=== PATIENT | male | born 2005 | race Caucasian/White ===

== ENCOUNTER 2024-04-26 22:01 | Emergency (ER) | payer BC, SELFPAY ==
[2024-04-26 22:03] VITALS: BP 141/85; PULSE 92; RESP 16; TEMP 36.4; O2SAT 97; BMI 24.4
--- NOTE | 2024-04-26 22:40 | ED_ITS ---
HPI - Wound/Laceration General Chief Complaint: Wound/Laceration Stated Complaint: Wrist lac Time Seen by Provider: 04/26/24 22:31 Source: patient Mode of arrival: ambulatory Limitations: no limitations History of Present Illness ED Provider: Dr. Blossom Carlson HPI narrative: patient comes to the emergency room complaining of a laceration in the wrist on the dorsum. 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 Patient denies any other injuries. Patient states that he believes that he is up-to-date with his Tdap shots. States that for his previous job will attempt years ago he needed to be up-to-date with all of his immunizations and believes he got his Tdap then. Related Data Allergies Allergy/AdvReac Type Severity Reaction Status Date / Time No Known Allergies Allergy Verified 04/26/24 22:06 Review of Systems Review of Systems: Constitutional : No Weight loss, No Fever, No Chills, No Night Sweats, No Fatigue, No Malaise ENT/Mouth : No Hearing loss, No Ear Pain, No Nasal Congestion, No Sinus Pain, No Hoarseness, No sore throat, No Rhinorrhea, No Swallowing Difficulty Eyes: No Eye Pain, No Swelling, No Redness, No Foreign Body, No Discharge, No Vision Changes Cardiovascular : No Chest Pain, No SOB, No Dyspnea on Exertion, No Orthopnea, No Edema, No Palpitations Respiratory : No Cough, No Sputum, No Wheezing, No Smoke Exposure, No Dyspnea Gastrointestinal : No Nausea, No Vomiting, No Diarrhea, No Constipation, No abdominal Pain, No Hematochezia, No Melena Genitourinary : no irregular bleeding, No Dysuria, No Urinary Frequency, No Hematuria, No Urinary Incontinence, No Urgency, No Flank Pain, No Urinary Flow Changes, No Hesitancy Musculoskeletal : No joint pain, No Myalgias, No Joint Swelling Skin : Complaining of laceration in the wrist Neuro : No Weakness, No Numbness, No Paresthesias, No Loss of Consciousness, No Dizziness, No Headache Psych : No Anxiety/Panic, No Depression, No SI/HI/AH/VH, No Social Issues, Heme/Lymph: No Bruising, No Bleeding,No Lymphadenopathy Endocrine : No Polyuria, No Polydipsia, No Temperature Intolerance [facility] Social History Social History Do you have a plan to hurt others: No Plan Physical Exam Vital Signs: Vital Signs: Last Vital Signs Temp 97.6 F 04/26/24 22:03 Pulse 92 04/26/24 22:03 Resp 16 04/26/24 22:03 BP 141/85 H 04/26/24 22:03 Pulse Ox 97 04/26/24 22:03 O2 Del Method Room Air 04/26/24 22:03 BMI result Body Mass Index 24.4 Const: Other: Appearance: Alert. Oriented X3. No acute distress. Eyes: Pupils equal, round and reactive to light. ENT: Pharynx normal. Neck: Normal inspection. Neck supple. No lymph nodes noted. No crepitus CVS: Normal heart rate and rhythm. Pulses normal. Normal S1 and S2 Respiratory: No respiratory distress. Breath sounds normal. No Wheezing. No rales Abdomen: Soft and nontender. No rigidity. No distention. Skin: Skin warm and dry. Normal skin color. Normal skin turgor. Extremities: No lower extremity edema. No Lacerations. No Rash. On the right wrist, there is a ragged laceration, consistent with getting injured by a fence Neuro: Oriented X 3. No motor deficit. No sensory deficit. Moving all extremities. No slurred speech. CN 2 through 12 grossly intact Psych: calm, cooperative, normal affect Course Course Course Narrative: I discussed the physical exam with the patient, patient will need stitches and possibly debridement. - Patient's injuries consistent with laceration with a fence rather than a suicide attempt. laceration due to SI is not suspected Medications Administered Discontinued Medications Generic Name Dose Route Start Last Admin Trade Name Chandrika PRN Reason Stop Dose Admin Lidocaine HCl 15 ml 04/26/24 22:34 04/26/24 23:15 Lidocaine Hcl 1 % 20 Ml Vial INFILTRATI 04/26/24 22:35 15 ml ONCE ONE Administration Medical Decision Making Medical Decision Making MDM Narrative: - patient's wound was injected with 1% lidocaine, needed 13 stitches. Patient able to flex and extend all fingers flex and extend the wrist without difficulty. - The laceration was examined under a bloodless field, no tendon lacerations appreciated - patient states that he believes that he is up-to-date with his Tdap injection, at this time, patient states that he will check his records at home and if he needs it, he will follow-up with his PCP Procedures Laceration Laceration 1: Site: upper extremity Side (If applicable): right Size (cm): 9 Description: linear, flap and irregular Depth: simple, single layer Local Anesthetic: lidocaine 1% Amount of anesthesia used (mL): 14 Pre-repair: wound explored and irrigated extensively Skin layer closed with: nylon Size (cm): 4-0 Number of sutures: 13 Technique: simple, interrupted Discharge Plan Discharge Clinical Impression: Laceration Patient Disposition: Home, Self-Care Instructions: Care For Your Stitches (ED), Laceration (ED) Additional Instructions: Please follow-up with your primary care physician tomorrow. If you have any worsening or new symptoms, please return to the emergency room or call 911
[2024-04-26] MEDS: Lidocaine HCl 1 % 20 ML VIAL 15 ML INFILTRATI (23:15)
[2024-04-26 23:31] VITALS: BP 109/63; PULSE 72; RESP 14; TEMP 36.7; O2SAT 99
[2024-04-26] MEDS: Ibuprofen 600 MG TABLET PO (23:42)
[2024-04-26 23:45] VITALS: BP 109/63; PULSE 72; RESP 14; TEMP 36.7; O2SAT 99
== END 2024-04-26 23:46 | disposition home or self-care (01) ==
LOC: HO.ED 23:37
PROVIDERS: Emergency Provider Emergency Medicine; PCP Family Medicine
DX: S61.511A Laceration without foreign body of right wrist, initial encounter (principal); M25.531 Pain in right wrist; W26.9XXA Contact with unspecified sharp object(s), initial encounter; Y93.9 Activity, unspecified; Y92.9 Unspecified place or not applicable; Y99.0 Civilian activity done for income or pay
CPT/HCPCS: 12034; 99283; 99284

== ENCOUNTER 2024-06-26 15:56 | Day surgery (SDC) | payer BC, SELFPAY ==
[2024-06-26] VITALS (8 sets, daily range): BP systolic 108–151; BP diastolic 55–100; PULSE 69–100; RESP 14–20; TEMP 36.6–37.3; O2SAT 96–100; BMI 24.4
--- NOTE | ~2024-06-26 | XR_ITS ---
EXAMINATION: XR KNEE, RIGHT CLINICAL INFORMATION: Pain. Injury. Open wound on the anterior right knee. COMPARISON: None available. TECHNIQUE: Four views of the right knee. FINDINGS: Question soft tissue swelling of the anterior lower thigh cephalad to the patella. No fracture or joint effusion identified. Alignment is anatomic. Joint spaces appear maintained. XR/XR knee RT 3V IMPRESSION: Findings as above. Electronically signed by: Justino Whittington MD 06/26/2024 05:29 PM EDT
--- NOTE | 2024-06-26 16:15 | ED_ITS ---
HPI - General Adult General Chief complaint: Wound/Laceration Stated complaint: leg lac Time Seen by Provider: 06/26/24 16:14 Source: patient Mode of arrival: ambulatory Limitations: no limitations History of Present Illness ED Provider: Kayce Tovar PA-C HPI narrative: Patient is a 19 year old assigned male at with no reported medical history presenting to the emergency department today with a right knee laceration. Patient states that he was running from a loose dog when he attempted to jump over a metal fence and cut open his right knee. Patient denies any dizziness, lightheadedness, abdominal pain, nausea, vomiting, fever, chills, blurry vision, double vision, loss of vision, chest pain, difficulty breathing, shortness of breath, back pain, night sweats, pain with urination, increased urinary frequency, increased urinary urgency, blood in his urine or stool, syncope or a near syncopal episode, recent trauma or falls, bowel incontinence, bladder incontinence, or any other complaints at this time. Location: right and lower extremity Relieving factors: none Exacerbating factors: none Associated symptoms: denies other symptoms Treatments prior to arrival: none Related Data Allergies Allergy/AdvReac Type Severity Reaction Status Date / Time No Known Allergies Allergy Verified 06/26/24 16:11 Review of Systems 2 Constitutional: Constitutional: Reports no additional constitutional complaints, Denies chills, Denies fever(s) and Denies night sweats Eyes: Eyes: Reports no additional eye complaints, Denies blurry vision, Denies change in vision, Denies diplopia, Denies eye discharge, Denies loss of vision and Denies eye pain ENT: Denies dizziness Cardiovascular: Cardiovascular: Reports no additional cardiovascular complaints, Denies chest pain, Denies lightheadedness, Denies Loss of Consciousness and Denies dyspnea Respiratory: Respiratory: Reports no additional respiratory complaints and Denies dyspnea Gastrointestinal: Gastrointestinal: Reports no additional gastrointestinal complaints, Denies abdominal pain, Denies melena, Denies hematochezia, Denies change in bowel habits and Denies change in stool character Genitourinary: Genitourinary: Reports no additional male genitourinary complaints, Denies hematuria, Denies oliguria, Denies difficulty urinating, Denies dysuria, Denies urinary frequency, Denies urinary hesitancy, Denies urinary incontinence and Denies urinary urgency Musculoskeletal: Musculoskeletal: Reports no additional musculoskeletal complaints, Denies numbness and Denies tingling Comments: right knee laceration Neurologic: Denies dizziness, Denies loss of vision, Denies numbness and Denies tingling Psychiatric: Psychiatric: Reports no additional psychiatric complaints Endocrine: Endocrine: Reports no additional endocrine complaints Hematologic/Lymphatic: Hematologic/Lymphatic: Reports no additional hematologic/lymphatic complaints Allergic/Immunologic: Allergic/Immunologic: Reports no additional allergic/immunologic complaints [facility] Past Medical History Attestation statement: The following information was validated with the patient. Source: old records reviewed and nursing notes reviewed Social History Social History Advance Directives: No Advance Directives Information Provided: No Do you have a plan to hurt others: No Plan Physical Exam ED Vital Signs: Vital Signs - 24 hr 06/26/24 16:08 06/26/24 17:48 Temperature 98 F 99.2 F Pulse Rate 100 100 Respiratory Rate 19 20 Blood Pressure 148/100 H 151/72 H Pulse Oximetry 98 96 Oxygen Delivery Method Room Air BMI result Body Mass Index 24.4 Const General: cooperative, no acute distress, alert and awake Nutritional Appearance: well nourished Orientation/consciousness: patient oriented x3 Limitations: no limitations HENMT Head: Yes normal to inspection and Yes atraumatic Ears: hearing grossly normal bilaterally and external ears normal General nose exam: Normal external nose present, no nasal discharge noted and no epistaxis Face and sinus: Yes normal facial exam, No abrasion and No laceration Mouth: Normal oral and palatal mucosa present, no drooling and no muffled voice Eyes General: appearance normal, both eyes and all related structures Periorbital: periorbital findings normal Eyelids: Yes eyelids normal Conjunctivae: conjunctivae normal Pupils: Equal, round and reactive pupils present EOM: EOMs intact bilaterally Neck Neck: Yes normal visual inspection, Yes full ROM and Yes no lymphadenopathy Chest Chest palpation & inspection: normal inspection of the chest Resp Effort & Inspection: normal respiratory effort and able to speak in complete sentences GI Inspection: Yes normal to inspection Neuro General: patient oriented x3 and moves all extremities Cranial nerves: Yes Equal, round and reactive pupils present Cognition (Neuro): normal cognition Extrem Other: General: Yes full ROM and Yes capillary refill normal Psych Appearance: grossly normal Mental Status: mental status grossly normal Affect: normal affect Attitude: cooperative Thought process: Normal thought process present Thought content: Normal thought content present Insight: Good insight present (Psych) Medications Administered Discontinued Medications Generic Name Dose Route Start Last Admin Trade Name Chandrika PRN Reason Stop Dose Admin Ampicillin Sodium/Sulbactam 100 mls @ 200 mls/hr 06/26/24 16:34 06/26/24 17:21 Sodium 3 gm/ Sodium Chloride IV 06/26/24 17:03 Infused ONCE ONE Infusion Cefazolin Sodium/Dextrose 2 gm in 50 mls @ 100 mls/hr 06/26/24 17:04 06/26/24 18:11 Ancef IV 06/26/24 17:33 Infused PREOP ONE Infusion Medical Decision Making Medical Decision Making [facility] Narrative: Patient is a 19 year old assigned male at with no reported medical history presenting to the emergency department today with a right knee laceration. Patient's physical exam showed a deep right knee laceration directly over the joint with active bleeding. Patient's blood work was unremarkable. Patient's right knee x-ray showed soft tissue swelling of the anterior lower thigh. I spoke to the orthopedic provider [employer] operations who recommended the patient be given IV antibiotics and taken to the OR for a washout. I explained my physical exam findings as well as all test results to the patient. I answered all questions asked by the patient. Patient verbalized agreement and understanding with this treatment plan and transfer to the operating room for washout. Differential Diagnosis Differential Diagnoses: The differential diagnosis associated with the presentation includes Knee laceration Knee injury Admission/Observation Consideration of admission/observation: Escalation of care including admission/observation considered Patient sent to the operating room for wash out Consult Healthcare Provider Management of the patient was discussed with: Billing Analyst (spoke to the orthopedic team as noted in the MDM Rationale portion of this note) Lab Data [facility] Lab Attestation statement: I reviewed the patient's lab results. My interpretation of these results are in the MDM Rationale portion of this note. 06/26/24 16:24 06/26/24 16:24 Labs: Lab Results 06/26/24 Range/Units 16:24 WBC 12.8 H (4.8-10.8) X10*3/uL RBC 4.58 L (4.60-5.80) X10*6/uL Hgb 13.8 L (14.0-18.0) g/dl Hct 38.6 L (42.0-52.0) % MCV 84.3 (80.0-98.0) fL MCH 30.1 (27.0-33.0) pg MCHC 35.8 (31.0-36.0) g/dl RDW 12.4 (11.0-16.0) % Plt Count 330 (160-400) X10*3/uL MPV 9.6 (9.4-12.4) fL Immature Gran % (Auto) 0.2 (0.0-0.4) % Neut % (Auto) 74.9 H (45-73) % Lymph % (Auto) 16.7 L (20-40) % [place] % (Auto) 7.0 (2-11) % Eos % (Auto) 0.9 (0-4) % Baso % (Auto) 0.3 (0-2) % Lymph # (Auto) 2.1 (1.2-4.9) X10*3/uL [place] # (Auto) 0.9 (0.1-1.2) X10*3/uL Eos # (Auto) 0.1 (0.0-0.4) X10*3/uL Baso # (Auto) 0.0 (0.0-0.2) X10*3/uL Abs Immat Gran (auto) 0.03 (0.00-0.03) X10*3/uL Absolute Neuts (auto) 9.6 H (2.0-8.3) x10*3/uL Absolute Nucleated RBC 0.000 (0.0-0.012) X10*3/uL Nucleated RBC % (auto) 0.0 (0.0-0.2) /100WBC ESR 10 (0-15) MM/HR PT 11.8 (11.1-13.3) SEC INR 1.0 (0.9-1.1) APTT 32.8 (26.0-36.8) SEC Sodium 139 (135-145) mmol/L Potassium 3.9 (3.3-5.1) mmol/L Chloride 107 (96-108) mmol/L Carbon Dioxide 23 (22-29) mmol/L Anion Gap 13 (12-20) BUN 10 (9-16) mg/dL Creatinine 0.97 (0.5-1.4) mg/dL Estim Creat Clear Calc 124.3 Estimated GFR > 60 Random Glucose 125 H (60-115) mg/dL Calcium 9.7 (8.4-10.2) mg/dL Total Bilirubin 0.5 (0.0-1.0) mg/dL AST 21 (5-37) U/L ALT 16 (0-40) U/L Alkaline Phosphatase 82 (39-117) U/L C-Reactive Protein 0.31 (< or = 0.50) mg/dL Total Protein 8.1 H (6.5-8.0) g/dL Albumin 4.7 (3.5-5.0) g/dL Independent Interpretation I performed an independent interpretation of an: Plain X-Ray Interpretation: My interpretation is in agreement with the radiologist's impression of this imaging study. - EXAMINATION: XR KNEE, RIGHT CLINICAL INFORMATION: Pain. Injury. Open wound on the anterior right knee. COMPARISON: None available. TECHNIQUE: Four views of the right knee. FINDINGS: Question soft tissue swelling of the anterior lower thigh cephalad to the patella. No fracture or joint effusion identified. Alignment is anatomic. Joint spaces appear maintained. XR/XR knee RT 3V IMPRESSION: Findings as above. Electronically signed by: Justino Whittington MD 06/26/2024 05:29 PM EDT RP Dictated By: Justino Whittington Signed By: Electronically signed by Justino Whittington 06/26/24 1729 Radiology Impression Discussion of test interpretation with radiology: I have reviewed the radiologist's reading. Critical Care Time Critical Care Time Critical Care Time: Yes Total Critical Care Time: 38 Attestation: I spent 38 minutes of Critical Care Time with this patient. This does not include time spent on separately reported billable procedures. Discharge Plan Discharge Clinical Impression: Deep laceration of knee Patient Disposition: Still a Patient
[2024-06-26 16:28] LABS: MANUAL DIFF FLAG NO
[2024-06-26 16:29] LABS: Basophils Percent Auto 0.3 % (0-2); Eosinophils Absolute Auto 0.1 X10*3/uL (0.0-0.4); Eosinophils Percent Auto 0.9 % (0-4); Hematocrit 38.6 % (42.0-52.0); Hemoglobin 13.8 g/dl (14.0-18.0); Imm Gran Abs Auto 0.03 X10*3/uL (0.00-0.03); Imm Gran Pct Auto 0.2 % (0.0-0.4); Lymphocytes Absolute Auto 2.1 X10*3/uL (1.2-4.9); Lymphocytes Percent Auto 16.7 % (20-40); Mean Corpuscular HGB Conc 35.8 g/dl (31.0-36.0); Mean Corpuscular Hemoglobin 30.1 pg (27.0-33.0); Mean Corpuscular Volume 84.3 fL (80.0-98.0); Mean Platelet Volume 9.6 fL (9.4-12.4); Monocytes Absolute Auto 0.9 X10*3/uL (0.1-1.2); Neutrophils Absolute Auto 9.6 x10*3/uL (2.0-8.3); Neutrophils Percent Auto 74.9 % (45-73); Platelet Count 330 X10*3/uL (160-400); Red Blood Count 4.58 X10*6/uL (4.60-5.80); Red Cell Distribution Width 12.4 % (11.0-16.0); White Blood Count 12.8 X10*3/uL (4.8-10.8)
[2024-06-26 16:38] LABS: Prothrombin Time 11.8 SEC (11.1-13.3)
[2024-06-26 16:40] LABS: Partial Thromboplastin Time 32.8 SEC (26.0-36.8)
[2024-06-26] MEDS: Ampicillin Sodium/Sulbactam Na 3 GM in 0.9 % Sodium Chloride 100 ML IV (16:43)
[2024-06-26 16:51] LABS: Alanine Aminotransferase 16 U/L (0-40); Albumin Level 4.7 g/dL (3.5-5.0); Alkaline Phosphatase 82 U/L (39-117); Anion Gap 13 (12-20); Aspartate Amino Transferase 21 U/L (5-37); Bilirubin Total 0.5 mg/dL (0.0-1.0); Blood Urea Nitrogen 10 mg/dL (9-16); C Reactive Protein 0.31 mg/dL (< or = 0.50); Calcium 9.7 mg/dL (8.4-10.2); Carbon Dioxide 23 mmol/L (22-29); Chloride 107 mmol/L (96-108); Creatinine Clr Calc Pharmacy 124.3; Estimated Glomerular Filt Rate > 60; Glucose Random 125 mg/dL (60-115); Potassium 3.9 mmol/L (3.3-5.1); Sodium 139 mmol/L (135-145); Total Protein 8.1 g/dL (6.5-8.0)
--- NOTE | 2024-06-26 17:00 | P.HPOP_ITS ---
History of Present Illness History of Present Illness Date of Service: 06/26/24 Chief complaint: leg lac Narrative: Bala Mills is a 19 year old male who presented to the emergency department after jumping over a fence and sustaining a laceration to the right anterior knee. He was unable to stop the bleeding at home and realized that the laceration was quite deep. He has no significant past medical history. Review of Systems 2 Review of Systems: Yes all other systems are reviewed and are negative PMFSH Social History Social History Advance Directives: No Advance Directives Information Provided: No Do you have a plan to hurt others: No Plan Meds Allergies Allergy/AdvReac Type Severity Reaction Status Date / Time No Known Allergies Allergy Verified 06/26/24 16:11 Active Medications: Current Medications Ampicillin Sodium/Sulbactam (Sodium 3 gm/ Sodium Chloride) 100 mls @ 200 mls/hr IV ONCE ONE Stop: 06/26/24 17:03 Last Admin: 06/26/24 16:43 Dose: 200 mls/hr Physical Exam 2 Vital Signs: Vital Signs: Last Vital Signs Temp 98 F 06/26/24 16:08 Pulse 100 06/26/24 16:08 Resp 19 06/26/24 16:08 BP 148/100 H 06/26/24 16:08 Pulse Ox 98 06/26/24 16:08 BMI result Body Mass Index 24.4 Const: General: cooperative, healthy appearing and no acute distress Resp: Effort & Inspection: normal respiratory effort and able to speak in complete sentences Cardio: Rate: regular rate Peripheral pulses: Peripheral pulses 2+ throughout GI: Palpation (GI): Soft to palpation Skin: Lesions: no lesions Rashes: no rashes Extrem: Other: Right knee anterior laceration with continuous oozing. Able to slightly flex and extend the knee. NVI. Results Labs 06/26/24 16:24 06/26/24 16:24 Labs: Abnormal lab results 06/26/24 Range/Units 16:24 WBC 12.8 H (4.8-10.8) X10*3/uL RBC 4.58 L (4.60-5.80) X10*6/uL Hgb 13.8 L (14.0-18.0) g/dl Hct 38.6 L (42.0-52.0) % Neut % (Auto) 74.9 H (45-73) % Lymph % (Auto) 16.7 L (20-40) % Absolute Neuts (auto) 9.6 H (2.0-8.3) x10*3/uL Random Glucose 125 H (60-115) mg/dL Total Protein 8.1 H (6.5-8.0) g/dL H & H 06/26/24 Range/Units 16:24 Hgb 13.8 L (14.0-18.0) g/dl Hct 38.6 L (42.0-52.0) % Coagulation 06/26/24 Range/Units 16:24 INR 1.0 (0.9-1.1) All other labs normal. Assessment and Plan (1) Laceration of right knee: Status: Acute Mr. Mills is a 19-year-old male who presents to the emergency department after sustaining a deep laceration to the right anterior knee after jumping over a fence. I discussed the case with Dr. Mckeon and explained the extent of the injury to the patient and options available which include surgical intervention. I explained the procedure in detail along with the length of recovery and rehab course. I explained the risk, benefits and alternatives. Risk including, but not limited to infection, blood clots, bleeding, non union or malunion and nerve/tissue damage to surrounding areas. I answered all their questions and with their understanding they have consented to move forward with operative debridement, lavage and closure. The patient will remain NPO. Quality Stroke Does the patient have a stroke diagnosis?: No VTE Prior VTE?: No VTE Risk Level:: Medical - moderate - high VTE Device Contraindication: N/A - Device Ordered VTE Drug Contraindication: N/A - Med Ordered Procedures Date of Service Date of Service: 06/26/24
[2024-06-26 17:07] LABS: Erythrocyte Sedimentation Rate 10 MM/HR (0-15)
[2024-06-26] MEDS: ceFAZolin Sodium/Dextrose,Iso 2 GM/50 ML PIGGYBACK IV (17:21)
--- NOTE | 2024-06-26 18:43 | P.CONAN_ITS ---
HPI - Anesthesia Eval Consult details Narrative: Right knee laceration PMFSH Active Problems Active Problems: All Active Problems Deep laceration of knee (Acute) Laceration of right knee (Acute) Family History Family history of problems with anesthesia: No Surgical History History of Problems with Anesthesia: No Social History Social History Advance Directives: No Advance Directives Information Provided: No Do you have a plan to hurt others: No Plan Meds Allergies Allergy/AdvReac Type Severity Reaction Status Date / Time No Known Allergies Allergy Verified 06/26/24 16:11 Exam Height,Weight and Vital Signs: Height 5 ft 10 in Weight 77.111 kg Last Vital Signs Temp 99.2 F 06/26/24 17:48 Pulse 100 06/26/24 17:48 Resp 20 06/26/24 17:48 BP 151/72 H 06/26/24 17:48 Pulse Ox 96 06/26/24 17:48 O2 Del Method Room Air 06/26/24 17:48 Pertinent Lab Results Pertinent Lab Results: Laboratory Tests 06/26/24 16:24 WBC 12.8 H RBC 4.58 L Hgb 13.8 L Hct 38.6 L MCV 84.3 MCH 30.1 MCHC 35.8 RDW 12.4 Plt Count 330 MPV 9.6 Immature Gran % (Auto) 0.2 Neut % (Auto) 74.9 H Lymph % (Auto) 16.7 L [place] % (Auto) 7.0 Eos % (Auto) 0.9 Baso % (Auto) 0.3 Lymph # (Auto) 2.1 [place] # (Auto) 0.9 Eos # (Auto) 0.1 Baso # (Auto) 0.0 Abs Immat Gran (auto) 0.03 Absolute Neuts (auto) 9.6 H Absolute Nucleated RBC 0.000 Nucleated RBC % (auto) 0.0 ESR 10 PT 11.8 INR 1.0 APTT 32.8 Sodium 139 Potassium 3.9 Chloride 107 Carbon Dioxide 23 Anion Gap 13 BUN 10 Creatinine 0.97 Estim Creat Clear Calc 124.3 Estimated GFR > 60 Random Glucose 125 H Calcium 9.7 Total Bilirubin 0.5 AST 21 ALT 16 Alkaline Phosphatase 82 C-Reactive Protein 0.31 Total Protein 8.1 H Albumin 4.7 Airway Mallampati Class: I TM Dist: >3cm Neck ROM: Full Loose/Missing/Broken Teeth: No Heart: RRR Lungs: CTA Assessment and Plan Assessment Anesthesia Assessment: Anesthesia Plan Discussed, PAT Visit and Chart Reviewed Final Anesthetic Review Family History of Problems with Anesthesia: No History of Problems with Anesthesia: No NPO: Yes ASA Class: I and Emergency Final Preanesthetic Review: No Changes in Pt Med Stat, Meds/Allgs Chart Reviewed, Consent Obtained/Reviewed and Anes Risks/Benef Reviewed Patient Risk: Low Procedure Risk: Low Anesthetic Plan Anesthetic Plan: GA Disposition: Standard PACU
[2024-06-26] MEDS: cefTRIAXone sodium 1 GM in 0.9 % Sodium Chloride 50 ML IV (20:05)
[2024-06-26] MEDS: Acetaminophen 325 MG TABLET 975 MG PO (20:48)
--- NOTE | 2024-06-27 07:07 | P.BOP_ITS ---
Brief Operative Note Date of Service: 06/26/24 Pre-op diagnosis: Right leg deep laceration Post-op diagnosis: same Procedure: Right leg deep laceration washout and primary closure Implants: none Surgeon: Wilfrid Mckeon MD Anesthesia: GLMA Was an Lapeler used for this Procedure?: No Estimated blood loss (mL): 15 Pathology: none sent Condition: stable Disposition: PACU
--- NOTE | 2024-06-27 07:12 | W.PM.OPN ---
Operative Note Operative Note Date of Service: 06/26/24 Narrative: After the patient was identified as Bala Mills and his right leg was initialed by myself he was brought to the operating room where general anesthesia was induced by anesthesiologist in routine fashion. The patient had been given both Unasyn and Ancef preoperatively. The dressing was removed from the patient's right knee. Inspection of his right leg showed a curvilinear incision measuring approximately 10 cm long. Minimal active bleeding. His thigh and lower leg compartments were soft. No foreign bodies noted. The patient's right leg was prepped and draped in sterile fashion. The patient's laceration was then irrigated with 3 L of normal saline solution via pulse lavage. Palpation into the laceration showed no defects in the extensor mechanism. There was no necrotic tissue. The laceration was then closed with 0 Vicryl, 2-0 Vicryl and skin fortino. Dry sterile dressing was placed over the laceration. The patient was awoken and extubated in the operating room. He was transferred to the recovery room in stable condition.
== END 2024-06-26 21:11 | disposition home or self-care (01) ==
LOC: HO.ED 16:48 → HO.SSS 16:50
PROVIDERS: Physician Assistant Medical; Emergency Provider Emergency Medicine; PCP Family Medicine; Visit Provider Orthopaedic Surgery
PROC: (CPT 12034; principal; 2024-06-26 18:00)
DX: S81.011A Laceration without foreign body, right knee, initial encounter (principal); W26.8XXA Contact with other sharp object(s), not elsewhere classified, initial encounter; M79.661 Pain in right lower leg; Y93.02 Activity, running; Y92.9 Unspecified place or not applicable; Y99.9 Unspecified external cause status
CPT/HCPCS: 12034; 36415; 73562; 80053; 85025; 85610; 85652; 85730; 86140; 96365; 96367; 99283; 99284; 99285; J0295; J0690; J0696; J1100; J1885; J2250; J2405; J2704; J2795; J3010

== ENCOUNTER → 2024-06-26 16:49 | Outpatient (BNV) | payer BC, SELFPAY | PROVIDERS: Emergency Provider Emergency Medicine; PCP Family Medicine; Visit Provider Physician Assistant | DX: S81.011A Laceration without foreign body, right knee, initial encounter (principal) | CPT/HCPCS: 12004; 99222 ==

== ENCOUNTER 2024-07-02 08:58 | Outpatient (AMB) | payer BC, SELFPAY ==
--- NOTE | 2024-07-02 09:10 | MHC.OFFVIS ---
Intake Visit Reasons: PO-Right knee lac DOS 06/26/24 DR-Wound check Intake Note: Bala a 19 year old male who presents today for a post operative wound check s/p right leg deep laceration washout and primary closure on 06/26/24. He reports mild discomfort in his right knee. He denies any fevers or chills. Allergies No Known Allergies Allergy (Verified 07/02/24 09:13) Medication List - Last Reconciled 07/02/24 by Wilfrid Mckeon MD cephalexin 500 mg PO Q6H 7 days ibuprofen 600 mg PO Q6H PRN oxycodone 5 mg PO Q6H PRN 5 days Physical Exam Extrem Other: Right knee examination shows that the surgical incision is healing well, no erythema, minimal discomfort with range of motion, 5/5 strength with quadriceps testing Assessment & Plan Assessment & Plan (1) Laceration of right knee: Code(s): S81.011A - Laceration without foreign body, right knee, initial encounter Category: Medical Plan Mr. Mills is doing well after undergoing washout and closure of his right knee deep laceration on 06/26/2024. I will leave his fortino in for now. I will see him back next week for repeat wound check and staple removal. Will continue with activities as tolerated in the meantime. Feel free to call me at any time should questions regarding his orthopedic management arise. Coding Level of Care Code Global (14228) Diagnoses Laceration of right knee S81.011A
== END 2024-07-02 09:36 | disposition home or self-care (01) ==
PROVIDERS: PCP Family Medicine; Visit Provider Orthopaedic Surgery
DX: S81.011A Laceration without foreign body, right knee, initial encounter (principal)
CPT/HCPCS: 99024

== ENCOUNTER → 2024-07-02 08:58 | Outpatient (BNVA) | payer BC, SELFPAY | PROVIDERS: PCP Family Medicine; Visit Provider Orthopaedic Surgery ==

== ENCOUNTER 2024-07-11 07:50 | Outpatient (AMB) | payer BC, SELFPAY ==
--- NOTE | 2024-07-11 07:55 | A.OFFVIS_ITS ---
Intake Visit Reasons: PO- RT knee laceration, DOS 06/26/24 Intake Note: Bala is a 19 year old male who presents to the office today for a post op rt knee laceration. Pt states he is overall feeling well and states he is not using any pain medications. [place] removed in office. He denies any fevers or chills. He would like to return to full duty at work. Allergies No Known Allergies Allergy (Verified 07/11/24 07:55) Medication List - Last Reconciled 07/11/24 by Wilfrid Mckeon MD ibuprofen 600 mg PO Q6H PRN Physical Exam Extrem Other: Right knee examination shows full range of motion when compared to his left knee with minimal discomfort, the laceration is healing well, no erythema, no signs of infection Assessment & Plan Assessment & Plan (1) Laceration of right knee: Code(s): S81.011A - Laceration without foreign body, right knee, initial encounter Category: Medical Plan Mr. Mills continues to do well after undergoing washout and closure of his right knee laceration on 06/26/2024. His fortino were removed and Steri-Strips placed over his incision. He can gradually progress to activities as tolerated. I did clear him to return to full duty at work. Will follow up with me on an as- needed basis should any questions or concerns arise. Feel free to call me at any time should questions regarding his orthopedic management arise. Coding Level of Care Code Global (93392) Diagnoses Laceration of right knee S81.011A
== END 2024-07-11 08:08 | disposition home or self-care (01) ==
PROVIDERS: PCP Family Medicine; Visit Provider Orthopaedic Surgery
DX: S81.011A Laceration without foreign body, right knee, initial encounter (principal)
CPT/HCPCS: 99024

== ENCOUNTER → 2024-07-11 07:50 | Outpatient (BNVA) | payer BC, SELFPAY | PROVIDERS: PCP Family Medicine; Visit Provider Orthopaedic Surgery ==

== ENCOUNTER 2024-12-23 16:17 | Emergency (ER) | payer BC, SELFPAY ==
[2024-12-23 16:53] VITALS: BP 118/67; PULSE 89; RESP 16; TEMP 37.6; O2SAT 97; BMI 32.8
--- NOTE | 2024-12-23 16:58 | ED.GENADULT ---
HPI - General Adult General Chief complaint: Skin/Abscess/Foreign Body Stated complaint: ? pilonidal cyst Related Data Previous Rx's ?Medication ?Instructions ?Recorded ibuprofen 600 mg tablet 600 mg PO Q6H PRN pain #90 tabs 06/26/24 Allergies Allergy/AdvReac Type Severity Reaction Status Date / Time No Known Allergies Allergy Verified 12/23/24 16:55 PMFSH Social History Social History Advance Directives: No Advance Directives Information Provided: No Physical Exam ED Vital Signs: Vital Signs - 24 hr 12/23/24 16:53 Temperature 99.6 F Pulse Rate 89 Respiratory Rate 16 Blood Pressure 118/67 Pulse Oximetry 97 Oxygen Delivery Method Room Air BMI result Body Mass Index 32.8 Course Course Course Narrative: This is a Rapid Medical Examination (RME) performed by Gladys Resendiz PA-C in triage. Full HPI, ROS, assessment and treatment plan per primary provider in the Main ED. 19 yo male here for eval of abscess to buttock area x24 hours. googled symptoms, believes it may be a pilonidal cyst. denies drainage. denies fever/chills. + appears uncomfortable. area not examined in triage d/t privacy. Plan: further eval in back. Reevaluation(s) Reevaluation #1: Patient left the emergency department before myself or any of the other clinicians could review or explain physical exam findings, test results, need or lack there of for additional testing, treatment options, or a treatment plan. Medications Administered Discontinued Medications Generic Name Dose Route Start Last Admin Trade Name Freq PRN Reason Stop Dose Admin Ibuprofen 600 mg 12/23/24 17:26 12/23/24 17:33 Ibuprofen 600 Mg Tablet PO 12/23/24 17:27 600 mg ONCE ONE Administration Discharge Plan Discharge Clinical Impression: Abscess Patient Disposition: Left W/O Completing Treatment Prescriptions: No Action ibuprofen 600 mg tablet 600 mg PO Q6H PRN (Reason: pain) Qty: 90 1RF Discharge Date/Time: 12/23/24 23:06
[2024-12-23] MEDS: Ibuprofen 600 MG TABLET PO (17:33)
--- NOTE | 2024-12-23 22:42 | PC.NURSE ---
no answer from WR at [id number]
--- OUTSIDE RECORDS SUMMARY | 2024-12-23 22:46 | XMS_ITS | Clinical Summary ---
Author Organization [facility] Address [address] [place] [phone] Phone Care Team Providers Care R D Manager Name Role Phone Myron Jean MD Primary Care Provider Jamal martinez Allergies No known active allergies Medications No known medications Active Problems Problem Noted Date Diagnosed Date Influenza vaccination declined 02/07/2020 Acne vulgaris 10/24/2018 Overview (02/07/2020): Last Assessment & Plan: Continue minocycline. Follow-up routine. Assessment & Plan (02/07/2020 3:08 PM EDT): Just uses a daily cleanser Attention deficit hyperactiv ity disorder (ADHD), combined type 05/16/2017 Assessment & Plan (02/07/2020 3:08 PM EDT): Doesn't take meds at this time Immunizations Immunization Administration Dates Next Due DTaP 03/28/2008, 7,08/15/2005, 005,03/08/2005 Hep A, ped/adol 04/19/2016,04/22/2015 Hep B, ped/adol 05/27/2004, 3,2003, 003 Hib (PRP-T) 08/15/2005 IPV 03/28/2008, 5,06/23/2005, 005 MMR 08/15/2005 MMRV 03/02/2007 Meningococcal Conj (Menactra) MCV4P 02/07/2020,0 04/09/2014 Pneumococcal Conjugate 03/14/2005 Tdap 04/09/2014 Typhoid, ViCPs 04/28/2015 Varicella 06/30/2009,09/28/2005 Family History Relation Name Status Comments Mother HIV , Hep A, B, and C, alcohol poisoning age 18 diagnosed with NONPSYCHOT BRAIN SYN NOS Other Alive Siblings: ivette melchor 09/30/1999 bio child of adopted parents Social History Tobacco Use Types Packs/Day Years Used Date Smoking Tobacco: Never Assessed Hunger/Food Answer Date Recorded In the last 12 months, did y ou or your family ever eat less than you felt you should because there wasn't enough money for food? No 02/07/2020 Stable Housing Answer Date Recorded Are you worried that in the next 2 months you may not have stable housing? No 02/07/2020 Transportation Concerns Answer Date Rec orded In the last 12 months, have you or your family ever had to go without healthcare because you didn't have a way to get there? No 02/07/2020 Hazards in Home Answer Date Recorded Think about the place you li ve. Do you have problems with any of the following? Pests (mice or roaches), mold, no/not working smoke detectors, water leaks, no window guards. No 2019 Financing Utilities Answer Date Recorde d In the last 12 months, has t he electric, gas, oil, or water company threatened to shut off your services in your home? No 02/07/2020 Safety at Home Answer Date Recorded Are you or your family worried about feeling saf e in your home? No 02/07/2020 Outside Support Answer Date Recorded Do you feel that you need mo re support from other people or programs to help you care for yourself or your family? No 02/07/2020 Understanding Health Concerns Answer Da te Recorded Do you need help understandi ng your or your child's healthcare needs (diagnosis, medications, plan, etc.)? No 02/07/2020 Financing Health Concerns Answer Date R ecorded In the last 12 months, was t here a time when your child needed to see a doctor or get medications or supplies but could not because of cost? No 02/07/2020 Missing School or Work Answer Date Yasir rded Did you or your child miss s chool or work because of a health problem that could have been avoided? No 02/07/2020 Sex and Gender Information Value Date Recorded Sex Assigned at Not on file Legal Sex Male 6:16 PM EDT Gender Identity Not on file Sexual Orientation Not on file Last Filed Vital Signs Vital Sign Reading Time Taken Comments Blood Pressure 114/70 02/07/2020 2:23 PM EDT Pulse - - Temperature 37.1 ??C (98.7 ??F) 12/21/2017 12:[address] Respiratory Rate - - Oxygen Saturation - - Inhaled Oxygen Concentration - - Weight 82 kg (180 lb 12.8 oz) 02/07/2020 2:23 PM EDT Height 174 cm (5' 8.5 ) 02/07/2020 2:23 PM EDT Body Mass Index 27.09 02/07/2020 2:23 PM EDT Plan of Treatment Health Maintenance Due Date Last Done Comments HPV Vaccines (1 - Male 3-dos e series) 2018 Men B Vaccine (1 of 2 - Standard) 2019 DTaP,Tdap,and Td Vaccines (7 - Td or Tdap) 04/09/2024 04/09/2014, 03/28/2008, 03/02/2007, Additional history exists Influenza Vaccines (#1) 2024 10/24/2018 COVID-19 Vaccine ( - 2023-2 5 season) 2024 Hepatitis B Vaccines Completed 05/27/2004, 2003, 2003, Additional history exists Pneumococcal Vaccine Completed 03/14/2005 HIB Vaccines Completed 08/15/2005 MMR Vaccines Completed 03/02/2007, 08/15/2005 IPV Vaccines Completed 03/28/2008, 09/01, 06/23/2005, Additional history exists Varicella Vaccines Completed 06/30/2009, 0 03/02/2007, 09/28/2005 Hepatitis A Vaccines Completed 04/19/2016, 04/22/20 15 Meningococcal Vaccine Completed 02/07/2020, 014 Insurance [employer] PPO Care Teams R D Manager Relationship Specialty Start Date End Date Myron Jean MD PCP - General 03/07/18
== END 2024-12-23 23:06 | disposition left against medical advice (07) ==
LOC: HO.ED 22:44
PROVIDERS: Emergency Provider Emergency Medicine
DX: L05.01 Pilonidal cyst with abscess (principal)
CPT/HCPCS: 99282; 99283

== ENCOUNTER 2024-12-24 08:18 | Emergency (ER) | payer OTHER, SELFPAY ==
[2024-12-24 08:51] VITALS: BP 127/79; PULSE 107; RESP 16; TEMP 37; O2SAT 98; BMI 31.0
--- NOTE | 2024-12-24 09:49 | ED.SKABFB ---
HPI - Skin/Abscess/Foreign Bdy General Chief complaint: Skin/Abscess/Foreign Body Stated complaint: cyst Time Seen by Provider: 12/24/24 09:08 Source: patient and RN notes reviewed Mode of arrival: ambulatory Limitations: no limitations History of Present Illness ED Provider: Perlita Quiñones PA-C HPI narrative: This is a 19-year-old male who presents emergency department with complaints of concerns for cyst on coccyx. Patient reports that over the last 3 days he has had pain to his lower back. He states that he has noticed increased swelling and pain. He went to the emergency room yesterday at 5:00 p.m. however left due to the wait time. He states that since last night he has noticed increased straining to this area, and a foul-smelling, brown discharge from the area. He reports some subjective fevers and chills. Denies history of similar symptoms in the past. He has been taking ibuprofen for his symptoms, last dose early this morning. Denies any other complaints or concerns at this time. MD complaint: abscess/boil Tetanus up to date: yes Pain Consistency: constant Relieving factors: none Exacerbating factors: none Context: none Associated symptoms: chills Treatments prior to arrival: none Related Data Previous Rx's ?Medication ?Instructions ?Recorded ibuprofen 600 mg tablet 600 mg PO Q6H PRN pain #90 tabs 06/26/24 acetaminophen 500 mg tablet 1,000 mg (2 x 500 mg) PO Q6H PRN 12/24/24 (Tylenol Extra Strength) pain #30 tabs cephalexin 500 mg capsule 500 mg PO QID 5 days #20 caps 12/24/24 doxycycline hyclate 100 mg tablet 100 mg PO BID 7 days #14 tabs 12/24/24 ibuprofen 600 mg tablet 600 mg PO Q6H PRN pain #30 tabs 12/24/24 Allergies Allergy/AdvReac Type Severity Reaction Status Date / Time No Known Allergies Allergy Verified 12/24/24 08:54 Review of Systems Review of Systems: Yes all other systems are reviewed and are negative [facility] Social History Social History Advance Directives: No Advance Directives Information Provided: Yes Do you have a plan to hurt others: No Plan Physical Exam Vital Signs: Vital Signs: Last Vital Signs Temp 98.3 F 12/24/24 11:37 Pulse 89 12/24/24 11:37 Resp 18 12/24/24 11:37 BP 137/79 12/24/24 11:37 Pulse Ox 94 12/24/24 11:37 O2 Del Method Room Air 12/24/24 11:37 BMI result Body Mass Index 31.0 Const: Other: General: Awake, alert, and oriented X3. No acute distress. HEENT: Normal inspection CVS: Normal heart rate and rhythm. Pulses normal. Respiratory: No respiratory distress Skin: At the gluteal cleft, there is a area of erythema and induration. Just inferior to the gluteal cleft on the right buttocks, there is an area of induration and fluctuance with surrounding redness and induration. Just medial, there is a already draining area with foul, brown smelling drainage noted. Extremities: Normal to inspection Neuro: Oriented X 3. No motor deficit. No sensory deficit. Medications Administered Discontinued Medications Generic Name Dose Route Start Last Admin Trade Name Freq PRN Reason Stop Dose Admin Acetaminophen 975 mg 12/24/24 10:02 12/24/24 10:11 Acetaminophen 325 Mg Tablet PO 12/24/24 10:03 975 mg ONCE ONE Administration Lidocaine HCl 5 ml 12/24/24 10:02 12/24/24 11:02 Lidocaine Hcl 1 % Mpf 5 Ml Vial SUBCUT 12/24/24 10:03 5 ml ONCE ONE Administration Medical Decision Making Medical Decision Making MDM Narrative: This is a 19-year-old male who presents emergency department for evaluation of abscess to his gluteal cleft. On arrival, patient alert and oriented x4, he is well-appearing under no acute distress. Patient with active, draining pilonidal cyst noted. Patient will be treated with Tylenol. There is an induration and fluctuance and induration requiring I&D. Will also attempt to drain other regions. No history of IVDA. Abscess was drained, see procedure note for detail. Patient tolerated procedure well without any complications or concerns. Area was packed. Given strict return precautions. Discharged on Keflex and doxycycline. Advised to return in 48-72 hours for wound check. Also given referral to surgeon for further workup, educated that this may return. He understands and agrees with plan. Patient stable for discharge. Differential Diagnosis Differential Diagnoses: The differential diagnosis associated with the presentation includes Pilonidal cyst, abscess, hematoma, cellulitis Procedures Abscess I/D Site: grace-rectal Side (if applicable): right Local Anesthetic: lidocaine 1% Amount of anesthesia used (mL): 5 Technique: incised with blade Amount of fluid expressed (mL): 10 Sent for culture/gram staining?: No Irrigation: Yes Packing used?: iodoform Discharge Plan Discharge Clinical Impression: Pilonidal abscess Patient Disposition: Home, Self-Care Instructions: Abscess (ED) Additional Instructions: You were seen in the emergency department due to a abscess. This was excised and drained. We placed packing in this abscess, please return in 48-72 hours for a wound check to ensure that this is healing well. If the packing falls out, this is okay, you do not need to immediately report back to the emergency room if this does happen. Please gently wash with soap and water. No hot tubs. Please take prescribed antibiotics as directed, finish the entire course even if your symptoms improve. Alternate between ibuprofen and or Tylenol as needed for pain. If any new or worsening symptoms occur including but not limited to increased redness, pain, swelling, fevers, chills, please seek emergent care. I also want you to follow-up with the surgeon, as you may need further surgical intervention. Call today to make an appointment. Prescriptions: New cephalexin 500 mg capsule 500 mg PO QID 5 Days Qty: 20 0RF doxycycline hyclate 100 mg tablet 100 mg PO BID 7 Days Qty: 14 0RF ibuprofen 600 mg tablet 600 mg PO Q6H PRN (Reason: pain) Qty: 30 0RF acetaminophen [Tylenol Extra Strength] 500 mg tablet 1,000 mg PO Q6H PRN (Reason: pain) Qty: 30 0RF No Action ibuprofen 600 mg tablet 600 mg PO Q6H PRN (Reason: pain) Qty: 90 1RF Referrals: Abhi Sparrow MD [Physician] - Interventions: ED Discharge Assessment Last Done: 12/24/24 11:37 Discharge Date/Time: 12/24/24 11:37 Print Language: Swedish
--- OUTSIDE RECORDS SUMMARY | 2024-12-24 10:09 | XMS_ITS | Clinical Summary ---
Author Organization [facility] Address [address] [place] [phone] Phone Care Team Providers Care Bonding Machine Setter Name Role Phone Myron Jean MD Primary [...] 15 Meningococcal Vaccine Completed 02/07/2020, 014 Insurance [employer] PPO Care Teams Bonding Machine Setter Relationship Specialty Start Date End Date Myron Jean MD PCP - General 03/07/18
--- OUTSIDE RECORDS SUMMARY | 2024-12-24 10:09 | XMS_ITS | Encounter Summary ---
Author Organization [facility] Address [address] [place] [phone] Phone Care Team Providers Care Physician Surgeon Name Role Phone Myron Jean MD Primary Care Provider Jamal martinez Encounter Details Date Type Department Care Team (Late st Contact Info) Description 03/18/2018 Conversion Encounter [facility] [address] [place] [address] Myron Jean MD Social History Tobacco Use Types Packs/Day Years Used Date Smoking Tobacco: Never Assessed Sex and Gender Information Value Date Recorded Sex Assigned at Not on file Legal Sex Male 6:16 PM EDT Gender Identity Not on file Sexual Orientation Not on file documented as of this encounter Plan of Treatment Not on file documented as of this encounter Visit Diagnoses Not on filedocumented in this encounter Care Teams Physician Surgeon Relationship Specialty Start Date End Date Myron Jean MD PCP - General 03/07/18 documented as of this encounter
[2024-12-24] MEDS: Acetaminophen 325 MG TABLET 975 MG PO (10:11)
[2024-12-24 10:32] VITALS: BP 137/79; PULSE 89; RESP 18; TEMP 36.8; O2SAT 94
[2024-12-24] MEDS: Lidocaine HCl 1 % MPF 5 ML VIAL SUBCUT (11:02)
[2024-12-24 11:37] VITALS: BP 137/79; PULSE 89; RESP 18; TEMP 36.8; O2SAT 94
== END 2024-12-24 11:37 | disposition home or self-care (01) ==
PROVIDERS: Emergency Provider Emergency Medicine
DX: L05.01 Pilonidal cyst with abscess (principal); M54.50 Low back pain, unspecified
CPT/HCPCS: 10080; 99283; 99284; J2003

== ENCOUNTER 2025-06-30 12:52 | Emergency (ER) | payer OTHER, SELFPAY ==
--- NOTE | ~2025-06-30 | XR_ITS ---
CLINICAL HISTORY: puncture wound, ? fx or fb Exam: Right forearm two views Comparison: None Findings: Normal bones. No dislocation. Subcutaneous masslike density 2.8 x 4.5 cm of midforearm volar radial aspect, surrounding fatty stranding noted, no emphysema or radiopaque foreign body. Impression: Probable subcutaneous hematoma of the left midforearm, no radiopaque foreign body, targeted ultrasound can better evaluate if warranted. This document has been electronically signed by: Demetra Zuniga MD on 06/30/2025 16:20:16
[2025-06-30 12:58] VITALS: BP 136/75; PULSE 100; RESP 20; TEMP 36.6; O2SAT 98; BMI 35.2
--- NOTE | 2025-06-30 12:59 | ED_ITS ---
HPI - General Adult General Chief complaint: Wound/Laceration Stated complaint: arm laceration Time Seen by Provider: 06/30/25 12:58 Source: patient, RN notes reviewed and old records reviewed Mode of arrival: ambulatory Limitations: no limitations History of Present Illness ED Provider: Petros HPI narrative: Patient is a 20-year-old right-hand dominant male presenting to the emergency department with laceration/puncture wound to right forearm. 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 He took the scissors away from his son but then his dog began to run away and he had to nando the dog. He tripped and fell and accidentally punctured his forearm with the scissors. Reports significant bleeding and describes the laceration as ?squirting. ? Unsure of last Tdap. Denies any weakness, numbness, or tingling to right hand. Denies any other injuries. MD complaint: laceration Onset (ago): minute(s) Related Data Previous Rx's ?Medication ?Instructions ?Recorded ibuprofen 600 mg tablet 600 mg PO Q6H PRN pain #90 t abs 06/26/24 acetaminophen 500 mg tablet 1,000 mg (2 x 500 mg) PO Q 6H PRN 12/24/24 (Tylenol Extra Strength) pain #30 tabs cephalexin 500 mg capsule 500 mg PO QID 5 days #20 cap s 12/24/24 doxycycline hyclate 100 mg tablet 100 mg PO BID 7 days #14 tabs 12/24/24 ibuprofen 600 mg tablet 600 mg PO Q6H PRN pain #30 t abs 12/24/24 acetaminophen 325 mg capsule 650 mg (2 x 325 mg) PO Q6 H PRN 06/30/25 pain #20 caps cephalexin 500 mg capsule 500 mg PO QID #28 caps 06/30 ibuprofen 600 mg tablet 600 mg PO Q6H PRN pain #20 t abs 06/30/25 oxycodone 5 mg tablet 5 mg PO Q8H PRN severe pain (scale 06/30/25 score 7-10) #6 tabs Allergies Allergy/AdvReac Type Severity Reaction Status Date / Time No Known Allergies Allergy Verified 06/30/25 13:02 Review of Systems 2 Review of Systems: As per HPI Yes all other systems are reviewed and are negative Constitutional: Constitutional: Reports as per [facility] Social History Social History Advance Directives: No Advance Directives Information Provided: No Do you have a plan to hurt others: No Plan Physical Exam ED Vital Signs: Vital Signs - 24 hr 06/30/25 12:58 06/30/25 14:55 06/30/25 16:00 Temperature 98 F 98.2 F 98.3 F Pulse Rate 100 76 71 Respiratory Rate 20 18 15 Blood Pressure 136/75 115/61 109/57 L Pulse Oximetry 98 99 100 Oxygen Delivery Method Room Air Room Air Room Air BMI result Body Mass Index 35.2 Vital signs have been reviewed and appear to be correct. Blood pressure normal. Heart rate normal. Respiratory rate normal. Temperature normal. Oxygen saturation normal. Const General: cooperative, healthy appearing and no acute distress Orientation/consciousness: oriented to person, oriented to place, oriented to time and patient oriented x3 Limitations: no limitations HENMT Head: Yes normocephalic and Yes atraumatic Ears: external ears normal General nose exam: Normal external nose present Face and sinus: Yes face symmetric Mouth: oropharynx normal and moist mucous membranes Throat: Yes uvula midline Eyes Pupils: Equal, round and reactive pupils present Neck Neck: Yes normal visual inspection and Yes supple Resp Effort & Inspection: normal respiratory effort and able to speak in complete sentences Auscultation: clear to auscultation bilaterally Cardio Rate: regular rate Rhythm: regular rhythm Heart sounds: S1 normal heart sound present and S2 normal heart sound present GI Palpation (GI): Soft to palpation and nontender Auscultation: normoactive bowel sounds General: Yes no CVA tenderness Back/Spine/Pelvis Back: no CVA tenderness Skin General skin exam: elasticity normal and turgor normal Neuro General: oriented to person, oriented to place, oriented to time, patient oriented x3, moves all extremities, no focal motor deficits and CN's II-XI intact bilaterally Cranial nerves: Yes Equal, round and reactive pupils present Cognition (Neuro): normal cognition Extrem Other: General: Yes full ROM, Yes no pedal edema and Yes no calf tenderness Right upper extremity: elbow/forearm Details: laceration forearm mid Details: linear (1cm), puncture, actively bleeding, with motor nerve function intact and with sensation intact, distal pulses intact and other (hematoma, see photos) and Extremity exam: right hand Details: normal to inspection, normal capillary refill, neuromotor exam normal, neurosensory exam normal, tendon exam normal, vascular exam Details: radial pulse present, ulnar pulse present and normal capillary refill and normal ROM of fingers Psych Mental Status: mental status grossly normal Affect: normal affect Thought process: Normal thought process present Course Reevaluation(s) Reevaluation #1: I,Dr. Danielle became involved in patient's care when 20-year-old male presented with laceration to the right forearm with scissors, AP P provider was not able to control significant amount of bleeding and forming hematoma to the right forearm, patient was evaluated by me, he sustained laceration to right forearm likely into the muscle belly and there was a copious venous bleeding, he likely lost around 3/4 of the unit of blood before the bleeding was able to be controlled, he also became vasovagal, hypotensive and had to be placed in Trendelenburg position then given antiemetics and normal fluids, the area was injected with lidocaine and epinephrine, then I proceeded to place 4 [id number] stitches in the blind fashion over the area of a bleeder, when on the 2nd stitch the bleeding was controlled I placed 2 more [id number] over the area, and then closed the rest of the laceration with simple interrupted sutures. Patient did have hematoma formed did not appear to be expanding or pulsatile, I assessed his vascular status he had radial ulnar pulses present +2, there were thready when he was hypotensive but improved, he had radial ulnar median motor and sensory intact and at the time of my exit from the room he gave me a thumbs up he spread his fingers and he squeeze my hand, he was also able to lift up his arm, I recommended getting either Orthopedics or surgical service involved because of the hematoma I doubt this is arterial but he will have to be monitored for expansion 4/compartment syndrome-unlikely Time: 14:13 Medications Administered Discontinued Medications Generic Name Dose Route Start Last Admin Trade Name Freq PRN Reason Stop Dose Admin Sodium Chloride 1,000 mls @ 999 mls/hr 06/30/25 14:15 06/30/25 14:52 Ns IV 06/30/25 15:15 999 mls/hr .Q1H1M ARIS Administration Lidocaine/Epinephrine 30 ml 06/30/25 13:19 06/30/25 14:00 Lidocaine Hcl 1% Pf/Epi 1:200,000 30 Ml Vial INFILTRATI 06/30/25 13:20 30 ml ONCE ONE Administration Ondansetron HCl 4 mg 06/30/25 13:56 06/30/25 14:00 Ondansetron Odt 4 Mg Tab.Demarcusdis TRANSLINGU 06/30/25 13:57 4 mg ONCE ONE Administration Procedures Laceration Right forearm: Site: upper extremity Side (If applicable): right Size (cm): 1 Description: linear and other Depth: involves muscle layer Local Anesthetic: lidocaine 1% and with epi Amount of anesthesia used (mL): 8 Pre-repair: wound explored Size (cm): 4-0 Number of sutures: 8 Technique: simple, interrupted (For figure of 8 sutures, 4 simple interrupted) Technique: simple interrupted (4) and [id number] (4) Medical Decision Making Medical Decision Making MDM Narrative: Patient is a 20-year-old right-hand dominant male presenting to the emergency department with laceration/puncture wound to right forearm. On exam patient is awake, A+Ox3, VS WNL, afebrile, normal neurological exam without focal deficits, physical exam findings as above. Given reported symptoms and physical exam findings, initial differential includes but is not limited to laceration, puncture wound, hematoma, radial fracture, foreign body. Unlikely arterial bleed as nonpulsatile. Assistance from attending, Dr. Danielle requested to control bleeding. Sutures performed by Dr. Danielle and bleeding controlled. Nonpulsatile hematoma noted to right forearm. Patient experienced vasovagal episode with hypotension, diaphoresis during sutures. Improved after being placed in trendelenberg position, given IV fluids. Blood pressure returned to normal following the procedure. Patient was able to tolerate PO food and fluids. Labs notable for H&H of 11.6/33.0. X-ray right forearm notable for no evidence of fracture or foreign body. My interpretation is in agreement with the radiologist's interpretation. Case discussed with Dr. Herzog from Orthopedics via telephone who recommends monitoring in the emergency department for a few hours to ensure hematoma is not rapidly expanding. She also recommends covering with empiric antibiotics. Patient observed in the ER for 2+ hours without any significant increase in size of hematoma, remains neurovascularly intact distal with full range of motion of all fingers of right hand with 5/5 strength. Patient discharged home on keflex, ibuprofen, tylenol and a few oxycodone for severe pain. All wound care instructions and return precautions discussed at bedside. Patient will follow up with orthopedics for suture removal, Dr. Herzog ok with this. Patient verbalized understanding of and agreement with plan. Differential Diagnosis Differential Diagnoses: The differential diagnosis associated with the presentation includes as per [facility] [place] [facility] Admission/Observation Consideration of admission/observation: Escalation of care including admission/observation considered Patient would have been admitted to the hospital had their clinical presentation warranted hospital admission. Consult Healthcare Provider Management of the patient was discussed with: Physician Office Nurse (Dr. Herzog, ortho) Lab Data [facility] Lab Attestation statement: I reviewed the patient's lab results. as per [facility] [place] [facility] 06/30/25 14:37 Labs: Lab Results 06/30/25 Range/Units 14:37 WBC 13.4 H (4.8-10.8) X10*3/uL RBC 3.96 L (4.60-5.80) X10*6/uL Hgb 11.6 L (14.0-18.0) g/dl Hct 33.0 L (42.0-52.0) % MCV 83.3 (80.0-98.0) fL MCH 29.3 (27.0-33.0) pg MCHC 35.2 (31.0-36.0) g/dl RDW 12.4 (11.0-16.0) % Plt Count 288 (160-400) X10*3/uL MPV 9.4 (9.4-12.4) fL Absolute Nucleated RBC 0.000 (0.0-0.012) X10*3/uL Nucleated RBC % (auto) 0.0 (0.0-0.2) /100WBC Independent Interpretation I performed an independent interpretation of an: Plain X-Ray Interpretation: No evidence of fracture or foreign body on right forearm x-ray Radiology Impression Discussion of test interpretation with radiology: I have reviewed the radiologist's reading. Radiologist Impression: Impression: Probable subcutaneous hematoma of the left midforearm, no radiopaque foreign body, targeted ultrasound can better evaluate if warranted. External Record Review External record reviewed: Inpatient record, Office record and Outpatient record Prescription Management I considered prescription management with: Pain Medication and Antibiotic Critical Care Time Critical Care Time Critical Care Time: Yes Total Critical Care Time: 32 Attestation: Time is exclusive of separately billable procedures. By Dr. Danielle Time includes: direct patient care, patient reassessment, coordination of patient care, interpretation of data (laboratory data, pulse oximetry, arterial blood gases and chest xrays), review of patient's medical records, medical consultation and documentation of patient care. Procedures excluded from critical care time: central intravenous line placement and electrocardiography. Nati Albert NP, have personally provided 35 minutes of critical care time exclusive of time spent on separately billable procedures. Time includes review of lab data, radiology results, discussion with consultants, and monitoring for potential decompensation. Intervention performed as documented. Discharge Plan Discharge Clinical Impression: Puncture wound of arm, right, complicated Qualifiers: Encounter type: initial encounter Qualified Code(s): S41.131A - Puncture wound without foreign body of right upper arm, initial encounter Patient Disposition: Home, Self-Care Instructions: Puncture Wound (DC) Additional Instructions: You were evaluated in the emergency department today for a puncture wound/laceration to your right arm. The bleeding was controlled with sutures (stitches). You will need to have the stitches removed in 7-10 days. You will need to call the orthopedics office to schedule a follow-up appointment for the suture removal. Your x-ray did not show evidence of any fracture or foreign body. Your bandage was covered with an BUDDY wrap. You should keep this dressing in place and dry for the next 24 hours, then change the dressing. Assess the area for any redness, warmth, thick yellow drainage from the wound, or redness spreading up your arm towards your body and you should return to the emergency department if any of these occur. You should also return to the emergency department if you develop a fever 100.4? F or greater. Assess the wound at least once every 24 hours. Return to the emergency department if you develop increased swelling, new weakness, numbness, tingling to your arm or hand. You are being treated with a course of antibiotics to prevent infection. Complete the full course as prescribed. You can take 600 mg of ibuprofen or 650 mg of Tylenol every 6 hours as needed for pain. If necessary, you can alternate these medications every 3 hours. For example, at 9:00 a.m. take Tylenol, then at noon take ibuprofen, then at 3:00 p.m. take Tylenol, etc.. You are being prescribed a few oxycodone for severe pain. This medication can cause drowsiness, you should not take this medication in combination with alcohol or other medications that cause drowsiness. Keep your arm elevated at rest. Use the BUDDY wrap for the next 2-3 days. You should not perform any heavy lifting with your right arm until cleared by orthopedics. Your tetanus vaccine was updated at today's visit. Prescriptions: New cephalexin 500 mg capsule 500 mg PO QID Qty: 28 0RF oxycodone 5 mg tablet 5 mg PO Q8H PRN (Reason: severe pain (scale score 7-10)) Qty: 6 0RF Rx Instructions: Partial Fill upon patient request. acetaminophen 325 mg capsule 650 mg PO Q6H PRN (Reason: pain) Qty: 20 0RF ibuprofen 600 mg tablet 600 mg PO Q6H PRN (Reason: pain) Qty: 20 0RF No Action ibuprofen 600 mg tablet 600 mg PO Q6H PRN (Reason: pain) Qty: 90 1RF cephalexin 500 mg capsule 500 mg PO QID 5 Days Qty: 20 0RF doxycycline hyclate 100 mg tablet 100 mg PO BID 7 Days Qty: 14 0RF ibuprofen 600 mg tablet 600 mg PO Q6H PRN (Reason: pain) Qty: 30 0RF acetaminophen [Tylenol Extra Strength] 500 mg tablet 1,000 mg PO Q6H PRN (Reason: pain) Qty: 30 0RF Referrals: [facility] [Provider Group] Referral Note: Will need removal of sutures in 7-10 days. Multiple figure 8 sutures used to control bleeding with hematoma. Clinical Impression: Puncture wound of arm, right, complicated Print Language: Togolese
--- OUTSIDE RECORDS SUMMARY | 2025-06-30 13:16 | XMS_ITS | Encounter Summary ---
Author Organization [facility] Address [address] [place] [phone] Phone Care Team Providers Care Clinical Data Manager Name Role Phone Myron Jean MD Primary Care Provider Jamal martinez Encounter Details Date Type Department Care Team (Late st Contact Info) Description 03/18/2018 Conversion Encounter [facility] [address] [place] [address] Myron Jean MD Social History Tobacco Use [...] on filedocumented in this encounter Care Teams Clinical Data Manager Relationship Specialty Start Date End Date Myron Jean MD PCP - General 03/07/18 documented as of this encounter
--- OUTSIDE RECORDS SUMMARY | 2025-06-30 13:16 | XMS_ITS | Clinical Summary ---
Author Organization [facility] Address [address] [place] [id number] Phone Care Team Providers Care Vest Tailor Name Role Phone Myron Jean MD Primary [...] PM EDT Pulse - - Temperature 37.1 C (98.7 F) 12/21/2017 12:00 AM EST Respiratory Rate - - Oxygen Saturation - [...] 04/09/2024 04/09/2014, 03/28/2008, 03/02/2007, Additional history exists COVID-19 Vaccine (1 - 2023-2 5 season) 2024 Influenza Vaccines (#1) 2025 10/24/2018 Hepatitis B Vaccines Completed 05/27/2004, 2003, 2003, Additional history exists Pneumococcal Vaccine Completed 03/14/2005 HIB Vaccines Completed 08/15/2005 MMR Vaccines Completed 03/02/2007, 08/15/2005 IPV Vaccines Completed 03/28/2008, 09/01, 06/23/2005, Additional history exists Varicella Vaccines Completed 06/30/2009, 0 03/02/2007, 09/28/2005 Hepatitis A Vaccines Completed 04/19/2016, 04/22/20 15 Meningococcal Vaccine Completed 02/07/2020, 014 Insurance [facility] PPO Care Teams Vest Tailor Relationship Specialty Start Date End Date Myron Jean MD PCP - General 03/07/18
[2025-06-30] MEDS: Lidocaine HCl 1% PF/Epi 1:200,000 30 ML VIAL INFILTRATI (14:00)
--- NOTE | 2025-06-30 14:02 | PC.NURSE ---
provider at bedside suturing, patient began to feel nauseous and faint during procedure. pale and diaphoretic.
[2025-06-30 14:44] LABS: Hematocrit 33.0 % (42.0-52.0); Hemoglobin 11.6 g/dl (14.0-18.0); Mean Corpuscular HGB Conc 35.2 g/dl (31.0-36.0); Mean Corpuscular Hemoglobin 29.3 pg (27.0-33.0); Mean Corpuscular Volume 83.3 fL (80.0-98.0); NRBC Abs Auto 0.000 X10*3/uL (0.0-0.012); NRBC Pct Auto 0.0 /100WBC (0.0-0.2); Platelet Count 288 X10*3/uL (160-400); Red Blood Count 3.96 X10*6/uL (4.60-5.80); White Blood Count 13.4 X10*3/uL (4.8-10.8)
[2025-06-30 14:55] VITALS: BP 115/61; PULSE 76; RESP 18; TEMP 36.8; O2SAT 99
--- NOTE | 2025-06-30 15:01 | PC.NURSE ---
IV established, fluids infusing. patient reports feeling much better at this time, no longer pale/diaphoretic. awaiting xray results. call meraz within reach
[2025-06-30 16:00] VITALS: BP 109/57; PULSE 71; RESP 15; TEMP 36.8; O2SAT 100
[2025-06-30] MEDS: Diphth,Pertus(ACell),Tet Adult 0.5 ML SYRINGE IM (17:37)
[2025-06-30 17:58] VITALS: BP 125/66; PULSE 87; RESP 15; TEMP 37; O2SAT 100
[2025-06-30 17:59] VITALS: BP 125/66; PULSE 87; RESP 15; TEMP 37; O2SAT 100
== END 2025-06-30 18:01 | disposition home or self-care (01) ==
PROVIDERS: Emergency Provider Emergency Medicine; PCP Nurse Practitioner Family
DX: S51.831A Puncture wound without foreign body of right forearm, initial encounter (principal); W26.8XXA Contact with other sharp object(s), not elsewhere classified, initial encounter; Y93.89 Activity, other specified; Y92.000 Kitchen of unspecified non-institutional (private) residence as the place of occurrence of the external cause; Y99.9 Unspecified external cause status; Z23 Encounter for immunization
CPT/HCPCS: 12001; 36415; 73090; 85027; 90471; 90715; 99284; J2004

== ENCOUNTER → 2025-06-30 14:22 | Outpatient (BNV) | payer OTHER, SELFPAY | PROVIDERS: Emergency Provider Emergency Medicine; PCP Nurse Practitioner Family; Visit Provider Radiology Diagnostic Radiology | DX: S51.831A Puncture wound without foreign body of right forearm, initial encounter (principal) | CPT/HCPCS: 73090 ==

== ENCOUNTER 2025-07-02 08:33 | Emergency (ER) | payer OTHER, SELFPAY ==
--- NOTE | ~2025-07-02 | US_ITS ---
EXAMINATION: US TRIPLEX UPPER EXTREMITY, RIGHT CLINICAL INFORMATION: Edema/swelling, right upper extremity. COMPARISON: None available. TECHNIQUE: Color-flow triplex imaging with spectral analysis and compression Doppler was performed on the right upper extremity. FINDINGS: The right internal jugular, subclavian, and axillary veins are patent with normal phasic flow and augmentation. The imaged segment of the right brachiocephalic vein is patent. Spectral doppler waveforms are normal. The brachial, basilic, cephalic, radial, and ulnar veins are patent and compressible. There is a 4.3 cm irregular shaped hypoechoic abnormality without flow on color Doppler interrogation centered in the soft tissues of the forearm. US/US venous duplex UE RT IMPRESSION: No acute deep venous thrombosis interrogated veins, right upper extremity. Negative for DVT in 4.3 cm soft tissue hematoma. Electronically signed by: Clint Martinez MD 07/02/2025 10:15 AM EDT
[2025-07-02 08:36] VITALS: BP 142/67; PULSE 113; RESP 18; TEMP 36.4; O2SAT 97; BMI 32.2
--- NOTE | 2025-07-02 08:50 | ED_ITS ---
HPI - Wound/Laceration General Chief Complaint: Wound/Laceration Stated Complaint: redness, swelling in arm Time Seen by Provider: 07/02/25 08:49 Source: patient Mode of arrival: ambulatory Limitations: no limitations History of Present Illness ED Provider: Grace Malagon PA-C HPI narrative: Patient reports back to the emergency department today for evaluation of what he describes as redness and swelling of his right upper extremity. He was seen here 2 days ago. Images and chart were visible. He states that while he was chasing his dog he fell onto a pair scissors. This resulted in a laceration to his mid proximal medial forearm. Patient was given a nonadhesive dressing with dry gauze on top of this along with an Baldomero wrap that wrapped the width the from his elbow to his wrist. Patient states that he has hepatis Baldomero wrap on 02/04/2020. He reports today his right hand is much more swollen and reports bruising in his medial elbow that he has no idea how it got there. 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 He is right-hand dominant. He has denies any fevers or chills. He denies it being more swollen the other day. Tetanus is up-to-date. He denies self-harm. Related Data Previous Rx's ?Medication ?Instructions ?Recorded ibuprofen 600 mg tablet 600 mg PO Q6H PRN pain #90 t abs 06/26/24 acetaminophen 500 mg tablet 1,000 mg (2 x 500 mg) PO Q 6H PRN 12/24/24 (Tylenol Extra Strength) pain #30 tabs cephalexin 500 mg capsule 500 mg PO QID 5 days #20 cap s 12/24/24 doxycycline hyclate 100 mg tablet 100 mg PO BID 7 days #14 tabs 12/24/24 ibuprofen 600 mg tablet 600 mg PO Q6H PRN pain #30 t abs 12/24/24 acetaminophen 325 mg capsule 650 mg (2 x 325 mg) PO Q6 H PRN 06/30/25 pain #20 caps cephalexin 500 mg capsule 500 mg PO QID #28 caps 06/30 ibuprofen 600 mg tablet 600 mg PO Q6H PRN pain #20 t abs 06/30/25 oxycodone 5 mg tablet 5 mg PO Q8H PRN severe pain (scale 06/30/25 score 7-10) #6 tabs Allergies Allergy/AdvReac Type Severity Reaction Status Date / Time No Known Allergies Allergy Verified 07/02/25 08:37 Review of Systems 2 Review of Systems: Yes all other systems are reviewed and are negative PMFSH Past Medical History Attestation statement: The following information was validated with the patient. Source: old records reviewed and nursing notes reviewed Social History Social History Unable to assess alcohol history related to: Unknown Smoked in Last 30 Days: No Use of substances other than those prescribed or required for medical reasons: Unknown Advance Directives: No Advance Directives Information Provided: Yes Do you have a plan to hurt others: No Plan Physical Exam 2 Exam: Exam: Vital Signs: Vital Signs: Last Vital Signs Temp 97.5 F 07/02/25 10:42 Pulse 113 H 07/02/25 10:42 Resp 18 07/02/25 10:42 BP 142/67 H 07/02/25 10:42 Pulse Ox 97 07/02/25 10:42 O2 Del Method Room Air 07/02/25 10:42 BMI result Body Mass Index 32.2 General: Appears in no acute distress, appears well nourished body habitus is average, appears stated age. No septic or ill-appearing. Vitals reviewed normal, PMH/Social and Surgical hx reviewed including allergies and current medications. - reviewed for prior visits here and red as it pertains to similar chief complaint. Head: Normocephalic, no obvious trauma or skin lesions noted. Eyes: EOMI ENMT: moist oral mucosa Neck: trachea midline Cardiovascular: peripheral perfusion normal, Regular heart rate, regular rhythm Respiratory: no respiratory distress Abdomen: nondistended Extremities: warm and moving - Baldomero wrap was removed. right upper extremity see images below. Images were compared to the 1 on few days ago. His hematoma believe his laceration was actually significantly larger 2 days ago than it is today. He also had some mild soft tissue swelling it was right-hand on Monday as well. Today his right hand appears more edematous. He also has markings from his Baldomero wrap being so tight it was like a tourniquet around his arm, sensation intact but paresthesias of the fingers, compartments are soft DTRs are intact no pain on proportion. Ecchymosis of the medial elbow as well as volar wrist. No significant bony tenderness. No redness is noted, patient is not able to perform right thumb to 5th digit finger opposition due to the swelling. The limited range of motion of the wrist but not painful hematomas firm underneath the sutures no palpable cord Psych: Cooperative Neuro: Alert and oriented. Const: Other: Hematoma with sutures intact of the right upper forearm measured above cap refill less than 3 seconds distal pulses 2+ compartments are soft sensation is fully intact slight nonpitting edema distal to this with markings from Baldomero wrap being occlusive, no significant bony tenderness, no discharge no wound dehiscence no odor or erythema ecchymosis diffusely as above, slight decreased range of motion of the level of the wrist however all fingers were able to perform finger opposition strength is 4+ throughout General: cooperative, healthy appearing, comfortable, no acute distress and well developed Nutritional Appearance: average body habitus O rientation/consciousness: patient oriented x3 Neuro: General: patient oriented x3 Medical Decision Making Medical Decision Making MDM Narrative: Well-appearing 20-year-old male here today for recheck of his right upper extremity. He was seen here 2 days ago after sustaining trauma to his right forearm which resulted in suture repair and a hematoma of the same area. Comes back today reporting increased pain and swelling. His Baldomero wrap has acted like a tourniquet on his arm and has increased the swelling in his right hand. He also has more ecchymosis but given his report of trauma this would be expected. We will obtain CK to rule out potential rhabdo but there is no obvious evidence for neurovascular compromise. We will also obtain a right upper extremity ultrasound to rule out potential VTE. Has a right now this does not present as infectious hematoma for soft tissue skin infection of the arm. Pain controlled at this time we will continue to monitor. 347: Patient's CK is mildly elevated at 495 but not as severe IV fluids are not indicated. He is able tolerate p.o. fluids. CBC without any leukocytosis however does show anemia which is slightly trending downward but does not meet transfusion criteria again this is consistent with his, likely due to extravasation in his soft tissue. No significant electrolyte imbalance. Ultrasound pending. 1023: No clot in U/S. Will advise against use of baldomero wrap and limb elevation. Stable to d/c to home. Differential Diagnosis Differential Diagnoses: The differential diagnosis associated with the presentation includes Compartment syndrome, rhabdomyolysis, traumatic hematoma, cellulitis, muscle strain Admission/Observation Consideration of admission/observation: Escalation of care including admission/observation considered Patient would have been admitted to the hospital had his work up had any findings where hospital admission was appropriate and his clinical presentation warranted hospital admission. Lab Data MDM Lab Attestation statement: I reviewed the patient's lab results. Mild elevation of CK but not 5 times the upper limit of normal consistent with trauma to the right arm but no evidence of compartment syndrome able tolerate p.o. fluids 07/02/25 09:08 07/02/25 09:08 Labs: Lab Results 07/02/25 Range/Units 09:08 WBC 9.8 (4.8-10.8) X10*3/uL RBC 3.15 L D (4.60-5.80) X10*6/uL Hgb 9.4 L (14.0-18.0) g/dl Hct 26.1 L D (42.0-52.0) % MCV 82.9 (80.0-98.0) fL MCH 29.8 (27.0-33.0) pg MCHC 36.0 (31.0-36.0) g/dl RDW 12.8 (11.0-16.0) % Plt Count 258 (160-400) X10*3/uL MPV 9.7 (9.4-12.4) fL Immature Gran % (Auto) 0.3 (0.0-0.4) % Neut % (Auto) 64.8 (45-73) % Lymph % (Auto) 25.5 (20-40) % Laporte % (Auto) 8.2 (2-11) % Eos % (Auto) 1.0 (0-4) % Baso % (Auto) 0.2 (0-2) % Lymph # (Auto) 2.5 (1.2-4.9) X10*3/uL [place] # (Auto) 0.8 (0.1-1.2) X10*3/uL Eos # (Auto) 0.1 (0.0-0.4) X10*3/uL Baso # (Auto) 0.0 (0.0-0.2) X10*3/uL Abs Immat Gran (auto) 0.03 (0.00-0.03) X10*3/uL Absolute Neuts (auto) 6.3 (2.0-8.3) x10*3/uL Absolute Nucleated RBC 0.000 (0.0-0.012) X10*3/uL Nucleated RBC % (auto) 0.0 (0.0-0.2) /100WBC Sodium 139 (135-145) mmol/L Potassium 3.6 (3.3-5.1) mmol/L Chloride 109 H (96-108) mmol/L Carbon Dioxide 25 (22-29) mmol/L Anion Gap 9 L (12-20) BUN 8 L (9-16) mg/dL Creatinine 0.86 (0.5-1.4) mg/dL Estim Creat Clear Calc 156.2 Estimated GFR > 60 Random Glucose 121 H (60-115) mg/dL Calcium 8.8 D (8.4-10.2) mg/dL Total Creatine Kinase 495 H (38-174) U/L Tests considered The following testing was considered but not selected: Would have considered doing compartment measures had there been concern for compartment syndrome Prescription Management I considered prescription management with: Pain Medication Social Determinants Patient?s care significantly limited by Social Determinants of Health including: Other Social Determinant of Health Discharge Plan Discharge Clinical Impression: Traumatic hematoma of right forearm, Anemia Patient Disposition: Home, Self-Care Instructions: Hematoma (ED) Additional Instructions: You were seen in the emergency department today for recheck of your forearm. It is very important that you do not apply anymore Baldomero wrap into your forearm. Elevate your right forearm as much as possible to help reduce the swelling. It is going to take several weeks for this bruising to go away in the hematoma to be absorbed. There is no indication of a soft tissue skin infection. Please wash your laceration daily and place topical antibiotic ointment on it. Only a loose Band-Aid over it would suffice but if at home and doing anything no need to cover it. Avoid NSAIDs It takes 650 mg of Tylenol every 6 hours but do not exceed 3000 mg in 24 hours. Return for any increased redness discharge or pain at the site. Sutures should be removed in 8 days. Have your PCP recheck your hemoglobin and hematocrit (CBC). Prescriptions: No Action ibuprofen 600 mg tablet 600 mg PO Q6H PRN (Reason: pain) Qty: 90 1RF cephalexin 500 mg capsule 500 mg PO QID 5 Days Qty: 20 0RF doxycycline hyclate 100 mg tablet 100 mg PO BID 7 Days Qty: 14 0RF ibuprofen 600 mg tablet 600 mg PO Q6H PRN (Reason: pain) Qty: 30 0RF acetaminophen [Tylenol Extra Strength] 500 mg tablet 1,000 mg PO Q6H PRN (Reason: pain) Qty: 30 0RF cephalexin 500 mg capsule 500 mg PO QID Qty: 28 0RF oxycodone 5 mg tablet 5 mg PO Q8H PRN (Reason: severe pain (scale score 7-10)) Qty: 6 0RF Rx Instructions: Partial Fill upon patient request. acetaminophen 325 mg capsule 650 mg PO Q6H PRN (Reason: pain) Qty: 20 0RF ibuprofen 600 mg tablet 600 mg PO Q6H PRN (Reason: pain) Qty: 20 0RF Referrals: Sarah Maynard, MARINE ENGINEERING TEACHER [Primary Care Provider, Family Practice] - 2 days Referral Note: ED rechecked hematoma recheck, recheck H/H Interventions: ED Discharge Assessment Last Done: 07/02/25 10:42 Discharge Date/Time: 07/02/25 10:43 Print Language: Slovak
[2025-07-02 09:13] LABS: MANUAL DIFF FLAG NO
[2025-07-02 09:22] LABS: Hematocrit 26.1 % (42.0-52.0); Hemoglobin 9.4 g/dl (14.0-18.0); Imm Gran Abs Auto 0.03 X10*3/uL (0.00-0.03); Imm Gran Pct Auto 0.3 % (0.0-0.4); Lymphocytes Absolute Auto 2.5 X10*3/uL (1.2-4.9); Mean Corpuscular HGB Conc 36.0 g/dl (31.0-36.0); Mean Corpuscular Hemoglobin 29.8 pg (27.0-33.0); Mean Corpuscular Volume 82.9 fL (80.0-98.0); NRBC Abs Auto 0.000 X10*3/uL (0.0-0.012); NRBC Pct Auto 0.0 /100WBC (0.0-0.2); Platelet Count 258 X10*3/uL (160-400); Red Blood Count 3.15 X10*6/uL (4.60-5.80); White Blood Count 9.8 X10*3/uL (4.8-10.8)
--- OUTSIDE RECORDS SUMMARY | 2025-07-02 09:33 | XMS_ITS | Encounter Summary ---
Author Organization [facility] Address [address] [place] [id number] Phone Care Team Providers Care Scrubber System Attendant Name Role Phone Myron Jean MD Primary Care Provider Jamal martinez Encounter Details Date Type Department Care Team (Late st Contact Info) Description 03/18/2018 Conversion Encounter [facility] [address] [place] [address] Myron Jean MD Social History Tobacco Use [...] on filedocumented in this encounter Care Teams Scrubber System Attendant Relationship Specialty Start Date End Date Myron Jean MD PCP - General 03/07/18 documented as of this encounter
--- OUTSIDE RECORDS SUMMARY | 2025-07-02 09:33 | XMS_ITS | Clinical Summary ---
Author Organization [facility] Address [address] [place] [phone] Phone Care Team Providers Care Diet Supervisor Name Role Phone Myron Jean MD Primary [...] 02/07/2020 Missing School or Work Answer Date Aysir rded Did you or your child miss [...] 15 Meningococcal Vaccine Completed 02/07/2020, 014 Insurance [facility] PPO Care Teams Diet Supervisor Relationship Specialty Start Date End Date Myron Jean MD PCP - General 03/07/18
[2025-07-02 09:37] LABS: Anion Gap 9 (12-20); Blood Urea Nitrogen 8 mg/dL (9-16); Calcium 8.8 mg/dL (8.4-10.2); Carbon Dioxide 25 mmol/L (22-29); Chloride 109 mmol/L (96-108); Creatinine Clr Calc Pharmacy 156.2; Estimated Glomerular Filt Rate > 60; Potassium 3.6 mmol/L (3.3-5.1); Sodium 139 mmol/L (135-145)
[2025-07-02 10:42] VITALS: BP 142/67; PULSE 113; RESP 18; TEMP 36.4; O2SAT 97
== END 2025-07-02 10:43 | disposition home or self-care (01) ==
PROVIDERS: Physician Assistant Medical; Emergency Provider Emergency Medicine Emergency Medical Services; PCP Nurse Practitioner Family
DX: S50.11XA Contusion of right forearm, initial encounter (principal); D64.9 Anemia, unspecified; W26.8XXA Contact with other sharp object(s), not elsewhere classified, initial encounter; Y93.89 Activity, other specified; Y92.89 Other specified places as the place of occurrence of the external cause; Y99.8 Other external cause status
CPT/HCPCS: 36415; 80048; 82550; 85025; 93971; 99284

== ENCOUNTER → 2025-07-02 08:56 | Outpatient (BNV) | payer OTHER, SELFPAY | PROVIDERS: Emergency Provider Emergency Medicine Emergency Medical Services; PCP Nurse Practitioner Family; Visit Provider Radiology Diagnostic Radiology | DX: R22.31 Localized swelling, mass and lump, right upper limb (principal) | CPT/HCPCS: 93971 ==

== ENCOUNTER 2025-07-16 10:34 | Outpatient (AMB) | payer OTHER, SELFPAY ==
[2025-07-16 10:41] VITALS: BMI 32.2
--- NOTE | 2025-07-16 10:41 | MHC.OFFVIS ---
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 He states that he was emptying the preschool paraprofessional and his 2-year-old son grabbed a pair of kitchen scissors. He took the scissors away from his son but then his dog began to run away and he had to nando the dog. He tripped and fell and accidentally punctured his forearm with the scissors. Reports significant bleeding and describes the laceration as ?squirting. ? He received stitches and was told to keep area clean. Currently states he is doing better, his bruising is better, he still has tenderness and numbness on his forearm. Denies numbness or tingling in finger tips. He states he was given ABX and he only took them for 4 days due to having stomach issues. 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 He was seen in the ED where this was sutured. he was seen again in the ED on 07/02/25 for increased swelling & pain, his BUDDY wrap was too tight. He says he is doing better but continues to have pain & tenderness in his forearm. He denies any numbness in his fingers. His swelling & bruising are improving. He stopped his Abx after 4 days due to stomach upset. He currently works in [employer]. 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 Review of Systems Const All systems reviewed & are unremarkable except as noted in HPI and below Physical Exam Vital Signs: BMI result Body Mass Index 32.2 Const General: cooperative, healthy appearing and no acute distress Orientation/consciousness: patient oriented x3 HEENT Head: Yes normocephalic and Yes atraumatic Eyes EOM: EOMs intact bilaterally Resp Effort & Inspection: normal respiratory effort and able to speak in complete sentences Cardio Jugular venous distension: no JVD Skin General skin exam: turgor normal Rashes: no rashes Neuro General: patient oriented x3 Extrem Other: Evaluation of Right Upper Extremity: The patient is alert, oriented, and in no acute distress Neuro: Median, Ulnar, Radial nerves motor and sensory intact and sensation is normal in all digits. Some numbness distal to the laceration Vascular: Cap refill brisk ROM: He can make a fist and extend all his digits Good wrist ROM without pain Skin: Laceration to the mid forearm, in line with the radius, measuring ~2cm in length. This has been sutured. Sutures removed & Steri-strips applied today General: No Erythema, drainage or evidence of infection. Minimal tenderness about the laceration Hematoma in the volar forearm, measuring ~6-7cm by 4cm, raised by ~2cm Radiographs: 3 views of the right forearm from 06/30/25 were reviewed by me today in clinic. They show no fractures or dislocations. Psych Appearance: grossly normal Affect: normal affect Attitude: cooperative Assessment & Plan Assessment & Plan (1) Puncture wound of arm, right, complicated: Code(s): S41.131A - Puncture wound without foreign body of right upper arm, initial encounter Category: Medical Qualifiers: Encounter type: initial encounter Qualified Code(s): S41.131A - Puncture wound without foreign body of right upper arm, initial encounter (2) Traumatic hematoma of right forearm: Code(s): S50.11XA - Contusion of right forearm, initial encounter Category: Medical Qualifiers: Encounter type: initial encounter Qualified Code(s): S50.11XA - Contusion of right forearm, initial encounter Plan Assessment & Plan: 1. Right forearm puncture wound From a pair of scissors at home, DOI: 06/30/25 2. Right forearm hematoma, 4-6 cm From a pair of scissors at home, DOI: 06/30/25 I educated him about this condition He appear to be healing well, and without any operative indications I explained the signs and symptoms of infection, if the patient develops any new or worsening erythema, drainage, pain, or warmth they should contact the clinic or attend the ED. He can apply a warm compress to treat the hematoma He can follow up prn Scribed for Nathalie Herzog MD by Memo Joel, medical staff assistant, on 07/16/25 at 11:05 AM, EST. Coding Level of Care Code New Pt Level 3 (16833) Diagnoses Puncture wound of arm, right, complicated S41.131A Encounter type: initial encounter Traumatic hematoma of right forearm S50.11XA Encounter type: initial encounter
--- OUTSIDE RECORDS SUMMARY | 2025-07-16 13:01 | XMS_ITS | Encounter Summary ---
Author Organization [facility] Address [address] [place] [phone] Phone Care Team Providers Care Steel Die Printer Name Role Phone Myron Jean MD Primary Care Provider Jamal martinez Encounter Details Date Type Department Care Team (Late st Contact Info) Description 03/18/2018 Conversion Encounter [facility] [address] [place] [address] Myron Jean MD Social History Tobacco Use [...] on filedocumented in this encounter Care Teams Steel Die Printer Relationship Specialty Start Date End Date Myron Jean MD PCP - General 03/07/18 documented as of this encounter
--- OUTSIDE RECORDS SUMMARY | 2025-07-16 13:01 | XMS_ITS | Clinical Summary ---
Author Organization [facility] Address [address] [place] [phone] Phone Care Team Providers Care Box Folding Machine Operator Name Role Phone Myron Jean MD Primary [...] 03/02/2007, Additional history exists Influenza Vaccines (#1) 2025 10/24/2018 COVID-19 Vaccine ( - 2023-2 5 season) 2025 Hepatitis B Vaccines Completed 05/27/2004, 2003, 2003, Additional history exists Pneumococcal Vaccine Completed 03/14/2005 HIB Vaccines Completed 08/15/2005 MMR Vaccines Completed 03/02/2007, 08/15/2005 IPV Vaccines Completed 03/28/2008, 09/01, 06/23/2005, Additional history exists Varicella Vaccines Completed 06/30/2009, 0 03/02/2007, 09/28/2005 Hepatitis A Vaccines Completed 04/19/2016, 04/22/20 15 Meningococcal Vaccine Completed 02/07/2020, 014 Insurance [facility] PPO Care Teams Box Folding Machine Operator Relationship Specialty Start Date End Date Myron Jean MD PCP - General 03/07/18
== END 2025-07-16 11:24 | disposition home or self-care (01) ==
LOC: HO.HOS 10:34
PROVIDERS: PCP Nurse Practitioner Family; Visit Provider Orthopaedic Surgery
DX: S41.131A Puncture wound without foreign body of right upper arm, initial encounter (principal); S50.11XA Contusion of right forearm, initial encounter
CPT/HCPCS: 99203

== ENCOUNTER → 2025-07-16 10:34 | Outpatient (BNVA) | payer OTHER, SELFPAY | PROVIDERS: PCP Nurse Practitioner Family; Visit Provider Orthopaedic Surgery | DX: S41.131A Puncture wound without foreign body of right upper arm, initial encounter (principal); S50.11XA Contusion of right forearm, initial encounter | CPT/HCPCS: 99202 ==